=== PATIENT | female | born 1985 | race Caucasian/White ===

== ENCOUNTER 2018-04-12 17:39 | Emergency (ER) | payer OTHER ==
--- NOTE | 2018-04-12 18:15 | EDM.PDOC ---
ED HPI GENERAL MEDICAL PROBLEM - General Chief Complaint: Skin Complaint Stated Complaint: FINGER NAIL INFECTED [id number] Time Seen by Provider: 04/12/18 18:05 Source of Information: Reports: Patient History Limitations: Reports: No Limitations - History of Present Illness INITIAL COMMENTS - FREE TEXT/NARRATIVE: This 33 yo female patient reports to the emergency department due to a right distal 3rd finger erythema and pain. The patient reports that she slammed her finger in a car door on Wednesday and has been experiencing increased pain and swelling since that time. Onset Date: 04/09/18 Duration: Constant, Getting Worse Location: Reports: Upper Extremity, Right Quality: Reports: Ache, Dull Severity: Moderate Improves with: Reports: None Worsens with: Reports: None Associated Symptoms: Reports: No Other Symptoms Right 3-Middle finger Pain Score (Numeric/FACES): 7 - Related Data Allergies Allergy/AdvReac Type Severity Reaction Status Date / Time minocycline [Minocycline] Allergy Hives Verified 04/12/18 17:44 Home Meds: Home Meds Multivitamin [Daily Multiple Vitamin] 1 tab PO DAILY 04/12/18 [History] Past Medical History - Past Health History Medical/Surgical History: Denies Medical/Surgical History - Infectious Disease History Infectious Disease History: Reports: MRSA - Past Surgical History HEENT Surgical History: Reports: Oral Surgery GI Surgical History: Reports: Appendectomy Social & Family History - Family History Family Medical History: Noncontributory - Tobacco Use Smoking Status *Q: Never Smoker Second Hand Smoke Exposure: No - Caffeine Use Caffeine Use: Reports: Coffee, Soda - Recreational Drug Use Recreational Drug Use: No ED ROS GENERAL - Review of Systems Review Of Systems: ROS reveals no pertinent complaints other than HPI. ED EXAM, SKIN/RASH Exam: See Below Exam Limited By: No Limitations General Appearance: Alert, WD/WN, Mild Distress Eye Exam: Bilateral Eye: EOMI, Normal Inspection, PERRL Ears: Normal External Exam, Normal Canal, Hearing Grossly Normal, Normal TMs Nose: Normal Inspection, Normal Mucosa, No Blood Throat/Mouth: Normal Inspection, Normal Lips, Normal Teeth, Normal Gums, Normal Oropharynx, Normal Voice, No Airway Compromise Head: Atraumatic, Normocephalic Neck: Normal Inspection, Supple, Non-Tender, Full Range of Motion Respiratory/Chest: No Respiratory Distress, Lungs Clear, Normal Breath Sounds, No Accessory Muscle Use, Chest Non-Tender Cardiovascular: Normal Peripheral Pulses, Regular Rate, Rhythm, No Edema, No Gallop, No JVD, No Murmur, No Rub GI/Abdominal: Normal Bowel Sounds, Soft, Non-Tender, No Organomegaly, No Distention, No Abnormal Bruit, No Mass (Female) Exam: Deferred Rectal (Female) Exam: Deferred Back Exam: Normal Inspection, Full Range of Motion, NT Extremities: Redness (right 3rd distal finger erythema and pain), Other Neurological: Alert, Oriented, CN II-XII Intact, Normal Cognition, Normal Gait, Normal Reflexes, No Motor/Sensory Deficits Psychiatric: Normal Affect, Normal Mood Skin: Erythema Location, Skin: Upper Extremity, Right Characteristics: Erythematous Associated features: Warmth, Tenderness, Swelling Lymphatic: No Adenopathy Course - Vital Signs Last Recorded V/S: Last Vital Signs Temp 37.4 C 04/12/18 17:47 Pulse 81 04/12/18 17:47 Resp 15 04/12/18 17:47 BP 135/80 04/12/18 17:47 Pulse Ox 99 04/12/18 17:47 - Orders/Labs/Meds Orders: Active Orders 24 hr Category Date Time Status Fingers Third Digit Rt F7 [CR] Urgent Exams 04/12/18 18:08 Taken CULTURE WOUND [RM] Stat Lab 04/12/18 18:54 Ordered Meds: Medications Discontinued Medications Generic Name Dose Route Start Last Admin Trade Name Kyleq PRN Reason Stop Dose Admin Bacitracin 1 dose 04/12/18 18:56 Bacitracin Oint 1 Gm TOP 04/12/18 18:57 ONETIME ONE Departure - Departure Time of Disposition: 18:58 Disposition: Home, Self-Care 01 Condition: Fair Clinical Impression: Cellulitis Qualifiers: Site of cellulitis: extremity Site of cellulitis of extremity: upper extremity Laterality: right Qualified Code(s): L03.113 - Cellulitis of right upper limb - Discharge Information *PRESCRIPTION DRUG MONITORING PROGRAM REVIEWED*: Not Applicable *COPY OF PRESCRIPTION DRUG MONITORING REPORT IN PATIENT JOSE DANIEL: Not Applicable Instructions: Cellulitis, Adult, [id number] Forms: ED Department Discharge Care Plan Goals: The patient was advised of the examination and x-ray results during the visit. The patient's wound was drained while in the ED. The patient was discharged with a script for Keflex (500 mg) to take 1 by mouth 3 times per day for 10 days. If the patient has any additional symptoms or concerns, the patient was encouraged to follow-up with her primary care facility or return to the emergency department. - My Orders Last 24 Hours: My Active Orders 04/12/18 18:08 Fingers Third Digit Rt F7 [CR] Urgent 04/12/18 18:54 CULTURE WOUND [RM] Stat - Assessment/Plan Last 24 Hours: My Active Orders 04/12/18 18:08 Fingers Third Digit Rt F7 [CR] Urgent 04/12/18 18:54 CULTURE WOUND [RM] Stat
[2018-04-12] MEDS ORDERED: Bacitracin Oint 1 GM U/D Packet TOP ONE (18:56)
== END 2018-04-12 19:10 | disposition home or self-care (01) ==
LOC: DL.ED 17:39
DX: L03.113 Cellulitis of right upper limb (principal); Z79.899 Other long term (current) drug therapy; Z88.8 Allergy status to other drugs, medicaments and biological substances
CPT/HCPCS: 73140-F7; 87070; 87077; 87186; 99283

== ENCOUNTER 2025-05-14 20:35 | Emergency (ER) | payer OTHER | END 2025-05-14 20:49 | disposition home or self-care (01) | LOC: DL.ED 20:35 | DX: T63.441A Toxic effect of venom of bees, accidental (unintentional), initial encounter (principal); Z79.899 Other long term (current) drug therapy; Z90.49 Acquired absence of other specified parts of digestive tract; W57.XXXA Bitten or stung by nonvenomous insect and other nonvenomous arthropods, initial encounter | CPT/HCPCS: 99282 ==